=== PATIENT | female | born 1985 | race African-American/Black ===

== ENCOUNTER 2017-03-30 16:27 | Emergency (ER) | payer MEDICAID ==
[~2017-03-30] VITALS: Ht 165.1 cm; Wt 102.0 kg
[~2017-03-30 16:27] MED LIST: CORTISONE CREAM
[2017-03-30 16:34] VITALS: BP 140/82
[2017-03-30] MEDS ORDERED: ARIP15TA3 PO (16:39)
[2017-03-30] MEDS ORDERED: SERT25TA PO (16:39)
[2017-03-30] MEDS ORDERED: ALPR1TAB2 PO (16:39)
== END 2017-03-30 21:45 | disposition left against medical advice (07) ==
LOC: ER 16:28
DX: F41.0 Panic disorder [episodic paroxysmal anxiety] (principal); Z53.21 Procedure and treatment not carried out due to patient leaving prior to being seen by health care provider

== ENCOUNTER 2018-08-31 08:42 | Emergency (ER) | payer MEDICAID ==
[~2018-08-31] VITALS: Ht 165.1 cm; Wt 111.0 kg
[~2018-08-31 08:42] MED LIST changes: +ALPR1TAB2 PO; +ARIP15TA2 PO; +SERT25TA PO
[2018-08-31] MEDS ORDERED: ONDANSETRON HCL 4MG/2ML INJ IV STA (09:09)
[2018-08-31] MEDS ORDERED: KETOROLAC 30MG/ML VIAL IV STA (09:09)
[2018-08-31] MEDS ORDERED: SODIUM CHLORIDE 0.9% 1,000 ML IV ONE (09:09)
[2018-08-31] MEDS ORDERED: FAMOTIDINE 20MG/2ML VIAL IV STA (09:09)
[2018-08-31 09:36] LABS: BASOPHILS % 0.3 % (0.0-2.0); EOSINOPHILS % 4.5 % (0.0-5.0); HEMOGLOBIN. 11.8 g/dL (12.0-16.0); LYMPHOCYTES % 26.5 % (20.0-50.0); MEAN CORPUSCULAR HEMOGLOBIN 27.3 pg (28.0-32.0); MEAN CORPUSCULAR VOLUME 83.6 fL (81.0-99.0); MONOCYTES % 9.1 % (2.0-8.0); NEUTROPHILS % 59.6 % (40.0-76.0); PLATELET 293 x1000/uL (130-400); RED BLOOD CELL COUNT 4.31 mill/uL (4.2-5.4); RED CELL DISTRIBUTION WIDTH 14.1 % (11.6-14.6)
[2018-08-31 09:40] LABS: CLARITY URINE CLOUDY (CLEAR); COLOR URINE YELLOW (YELLOW); KETONES URINE NEGATIVE (NEGATIVE); LEUKOCYTE ESTERASE URINE 1+ (NEGATIVE); NITRITE URINE NEGATIVE (NEGATIVE); OCCULT BLOOD URINE NEGATIVE (NEGATIVE); PH URINE 6.5 (4.5-8.0); PROTEIN URINE NEGATIVE (NEGATIVE); SPECIFIC GRAVITY URINE 1.026 (1.005-1.030)
[2018-08-31 09:48] LABS: HCG SCREEN NEGATIVE
[2018-08-31 09:53] LABS: CHLORIDE 105 mEq/L (98-107)
[2018-08-31 10:53] LABS: *AMPHETAMINES SCREEN URINE NEGATIVE (NEGATIVE); *BARBITURATES SCREEN URINE NEGATIVE (NEGATIVE); *COCAINE SCREEN URINE NEGATIVE (NEGATIVE); CANNABINOID URINE SCREEN NEGATIVE (NEGATIVE); METHADONE URINE SCREEN NEGATIVE (NEGATIVE)
[2018-08-31 10:56] LABS: *BENZODIAZEPINES SCREEN URINE NEGATIVE (NEGATIVE); PHENCYCLIDINE URINE SCREEN NEGATIVE (NEGATIVE)
[2018-08-31 11:08] LABS: OPIATES URINE SCREEN NEGATIVE (NEGATIVE)
[2018-08-31 13:42] VITALS: BP 126/97
== END 2018-08-31 13:53 | disposition home or self-care (01) ==
LOC: ER 08:42
DX: J06.9 Acute upper respiratory infection, unspecified (principal); N39.0 Urinary tract infection, site not specified; R19.7 Diarrhea, unspecified; R11.10 Vomiting, unspecified; F41.9 Anxiety disorder, unspecified; F31.9 Bipolar disorder, unspecified; Z79.899 Other long term (current) drug therapy
CPT/HCPCS: 36415; 74022; 76705; 80053; 80305; 81003; 81025; 83690; 84703; 85025; 96361; 96374; 96375; 99285; J1885; J2405; J3490; J7030; Z7610

== ENCOUNTER 2019-08-27 12:52 | Emergency (ER) | payer MEDICAID ==
[~2019-08-27] VITALS: Ht 165.1 cm; Wt 115.0 kg
[2019-08-27] MEDS ORDERED: ERYTHROMYCIN BASE 0.5% OPHTH OINT 3.5GM BOTHEYE ONE (14:45)
[2019-08-27 15:24] VITALS: BP 122/84
== END 2019-08-27 15:26 | disposition home or self-care (01) ==
LOC: ER 13:08
DX: B99.8 Other infectious disease (principal); H10.89 Other conjunctivitis; F41.9 Anxiety disorder, unspecified; F32.9 Major depressive disorder, single episode, unspecified; L29.8 Other pruritus
CPT/HCPCS: 99283

== ENCOUNTER 2020-02-06 09:35 | Emergency (ER) | payer MEDICAID ==
[~2020-02-06] VITALS: Ht 165.1 cm; Wt 118.0 kg
[2020-02-06] MEDS ORDERED: GUAIFENESIN-DM 200MG-20MG/10ML UDC PO ONE (10:15)
[2020-02-06 12:10] VITALS: BP 138/91
== END 2020-02-06 12:16 | disposition home or self-care (01) ==
LOC: ER 09:35
DX: J20.9 Acute bronchitis, unspecified (principal); J06.9 Acute upper respiratory infection, unspecified; F41.9 Anxiety disorder, unspecified; F32.9 Major depressive disorder, single episode, unspecified; Z79.899 Other long term (current) drug therapy
CPT/HCPCS: 71045; 99283

== ENCOUNTER 2020-11-29 19:12 | Emergency (ER) | payer MEDICAID ==
[~2020-11-29] VITALS: Ht 165.1 cm; Wt 131.0 kg
[2020-11-30] MEDS ORDERED: IBUPROFEN 600MG TABLET PO ONE (00:15)
[2020-11-30 00:58] VITALS: BP 155/81
[2020-11-30 01:23] LABS: CLARITY URINE CLEAR (CLEAR); COLOR URINE YELLOW (YELLOW); KETONES URINE TRACE (NEGATIVE); LEUKOCYTE ESTERASE URINE NEGATIVE (NEGATIVE); NITRITE URINE NEGATIVE (NEGATIVE); OCCULT BLOOD URINE NEGATIVE (NEGATIVE); PH URINE 6.5 (4.5-8.0); PROTEIN URINE NEGATIVE (NEGATIVE)
[2020-11-30 01:49] LABS: BASOPHILS % 0.7 % (0.0-2.0); HEMATOCRIT. 36.9 % (36.0-48.0); HEMOGLOBIN. 12.2 g/dL (12.0-16.0); LYMPHOCYTES % 32.5 % (20.0-50.0); MEAN PLATELET VOLUME 8.3 fl (7.4-10.4); NEUTROPHILS % 55.8 % (40.0-76.0); PLATELET 250 x1000/uL (130-400); RED CELL DISTRIBUTION WIDTH 14.3 % (11.6-14.6)
[2020-11-30 01:54] LABS: CHLORIDE 105 mEq/L (98-107)
[2020-11-30 02:03] LABS: HCG SCREEN NEGATIVE
== END 2020-11-30 02:30 | disposition home or self-care (01) ==
LOC: ER 19:12
DX: R10.2 Pelvic and perineal pain (principal); F41.9 Anxiety disorder, unspecified; F32.9 Major depressive disorder, single episode, unspecified
CPT/HCPCS: 36415; 80053; 81003; 81025; 84703; 85025; 99283

== ENCOUNTER 2021-05-23 23:20 | Emergency (ER) | payer MEDICAID ==
[~2021-05-23] VITALS: Ht 165.1 cm; Wt 132.0 kg
[2021-05-24 01:11] LABS: BASOPHILS % 0.6 % (0.0-2.0); EOSINOPHILS % 2.6 % (0.0-5.0); HEMATOCRIT. 38.7 % (36.0-48.0); HEMOGLOBIN. 12.4 g/dL (12.0-16.0); LYMPHOCYTES % 33.2 % (20.0-50.0); MEAN CORPUSCULAR HEMOGLOBIN 26.4 pg (28.0-32.0); MEAN CORPUSCULAR VOLUME 82.4 fL (81.0-99.0); MONOCYTES % 7.9 % (2.0-8.0); NEUTROPHILS % 55.7 % (40.0-76.0); PLATELET 296 x1000/uL (130-400); RED BLOOD CELL COUNT 4.69 mill/uL (4.2-5.4); RED CELL DISTRIBUTION WIDTH 14.7 % (11.6-14.6)
[2021-05-24 01:16] LABS: CHLORIDE 107 mEq/L (98-107)
[2021-05-24 01:31] LABS: HCG SCREEN NEGATIVE
[2021-05-24] MEDS ORDERED: SODIUM CHLORIDE 0.9% 1,000 ML IV ONE ×2 (02:15)
[2021-05-24] MEDS ORDERED: CLOT15CR27 TP (05:50)
[2021-05-24] MEDS ORDERED: IOHEXOL-350 100 ML BOTTLE ONE (06:23)
[2021-05-24 06:28] VITALS: BP 145/98
== END 2021-05-24 06:31 | disposition home or self-care (01) ==
LOC: ER 23:20
DX: R07.89 Other chest pain (principal); E11.9 Type 2 diabetes mellitus without complications
CPT/HCPCS: 36415; 71045; 71275; 80053; 83880; 84484; 84703; 85025; 85379; 93005; 96360; 99285; J7030; Q9967

== ENCOUNTER 2022-05-11 23:47 | Emergency (ER) | payer MEDICAID ==
[~2022-05-11] VITALS: Ht 165.1 cm; Wt 125.0 kg
[~2022-05-11 23:47] MED LIST changes: +CLOT15CR27 TP
[2022-05-12 00:03] VITALS: BP 139/88
== END 2022-05-12 01:06 | disposition left against medical advice (07) ==
LOC: ER 23:47
DX: Z53.21 Procedure and treatment not carried out due to patient leaving prior to being seen by health care provider (principal)
CPT/HCPCS: 93005

== ENCOUNTER 2022-06-14 10:59 | Emergency (ER) | payer MEDICAID ==
[~2022-06-14] VITALS: Ht 165.1 cm; Wt 124.0 kg
[2022-06-14 11:27] VITALS: BP 140/93
[2022-06-14 15:28] LABS: *AMPHETAMINES SCREEN URINE NEGATIVE (NEGATIVE); *BARBITURATES SCREEN URINE NEGATIVE (NEGATIVE); *BENZODIAZEPINES SCREEN URINE NEGATIVE (NEGATIVE); *COCAINE SCREEN URINE NEGATIVE (NEGATIVE); CANNABINOID URINE SCREEN NEGATIVE (NEGATIVE); METHADONE URINE SCREEN NEGATIVE (NEGATIVE); OPIATES URINE SCREEN NEGATIVE (NEGATIVE); PHENCYCLIDINE URINE SCREEN NEGATIVE (NEGATIVE)
== END 2022-06-14 18:35 | disposition home or self-care (01) ==
LOC: ER 11:24
DX: R68.89 Other general symptoms and signs (principal); E11.9 Type 2 diabetes mellitus without complications; Z79.899 Other long term (current) drug therapy
CPT/HCPCS: 80305; 81025; 99283

== ENCOUNTER 2022-06-14 19:13 | Emergency (ER) | payer MEDICAID ==
[~2022-06-14] VITALS: Ht 167.6 cm; Wt 133.0 kg
[2022-06-14 19:26] VITALS: BP 148/82
== END 2022-06-14 20:32 | disposition left against medical advice (07) ==
LOC: ER 19:13
DX: T76.21XA Adult sexual abuse, suspected, initial encounter (principal); X58.XXXA Exposure to other specified factors, initial encounter; Z79.899 Other long term (current) drug therapy
CPT/HCPCS: 99281

== ENCOUNTER 2023-01-21 02:46 | Emergency (ER) | payer MEDICAID | END 2023-01-21 03:26 | disposition left against medical advice (07) | LOC: ER 02:46 | DX: Z53.21 Procedure and treatment not carried out due to patient leaving prior to being seen by health care provider (principal) ==

== ENCOUNTER 2023-01-21 07:42 | Emergency (ER) | payer MEDICAID ==
[~2023-01-21] VITALS: Ht 167.6 cm; Wt 99.8 kg
[2023-01-21 07:50] VITALS: BP 146/80
[2023-01-21] MEDS ORDERED: MIDAZOLAM HCL 2 MG/2 ML VIAL IV ONE (09:00)
[2023-01-21 09:10] LABS: BASOPHILS % 0.3 % (0.0-2.0); EOSINOPHILS % 2.2 % (0.0-5.0); HEMATOCRIT. 38.8 % (36.0-48.0); HEMOGLOBIN. 12.7 g/dL (12.0-16.0); MEAN CORPUSCULAR HEMOGLOBIN 27.2 pg (28.0-32.0); MEAN CORPUSCULAR VOLUME 83.3 fL (81.0-99.0); MEAN PLATELET VOLUME 7.8 fl (7.4-10.4); NEUTROPHILS % 71.5 % (40.0-76.0); PLATELET 287 x1000/uL (130-400); RED BLOOD CELL COUNT 4.66 mill/uL (4.2-5.4); RED CELL DISTRIBUTION WIDTH 15.6 % (11.6-14.6)
[2023-01-21 09:18] LABS: CHLORIDE 107 mEq/L (98-107)
[2023-01-21 09:25] LABS: ETHANOL BLOOD < 10 mg/dL
[2023-01-21 09:33] LABS: HCG SCREEN NEGATIVE
[2023-01-21 13:46] LABS: CLARITY URINE CLEAR (CLEAR); COLOR URINE YELLOW (YELLOW); KETONES URINE NEGATIVE (NEGATIVE); LEUKOCYTE ESTERASE URINE 3+ (NEGATIVE); NITRITE URINE NEGATIVE (NEGATIVE); OCCULT BLOOD URINE TRACE (NEGATIVE); PH URINE 5.5 (4.5-8.0); PROTEIN URINE NEGATIVE (NEGATIVE); SPECIFIC GRAVITY URINE 1.016 (1.005-1.030)
[2023-01-21 14:43] LABS: *AMPHETAMINES SCREEN URINE NEGATIVE (NEGATIVE); *BARBITURATES SCREEN URINE NEGATIVE (NEGATIVE); *BENZODIAZEPINES SCREEN URINE NEGATIVE (NEGATIVE); *COCAINE SCREEN URINE NEGATIVE (NEGATIVE); CANNABINOID URINE SCREEN NEGATIVE (NEGATIVE); METHADONE URINE SCREEN NEGATIVE (NEGATIVE); OPIATES URINE SCREEN NEGATIVE (NEGATIVE); PHENCYCLIDINE URINE SCREEN NEGATIVE (NEGATIVE)
== END 2023-01-21 14:10 | disposition home or self-care (01) ==
LOC: ER 07:42
DX: F41.9 Anxiety disorder, unspecified (principal); E11.9 Type 2 diabetes mellitus without complications; Z59.02 Unsheltered homelessness
CPT/HCPCS: 36415; 71045; 80053; 80305; 80320; 81003; 83880; 84703; 85025; 93005; 99285; G0480

== ENCOUNTER 2025-09-08 09:38 | Emergency (ER) | payer OTHER, MEDICAID ==
[~2025-09-08] VITALS: Ht 165.1 cm; Wt 136.0 kg
[2025-09-08 09:42] VITALS: O2SAT 97
[2025-09-08 10:18] VITALS: BP 128/92; PULSE 99; RESP 16; TEMP 36.8; O2SAT 98
[2025-09-08 11:40] LABS: INFLUENZA TYPE A Presumptive Negative (Pres. Neg.)
[2025-09-08 11:41] LABS: INFLUENZA TYPE B Presumptive Negative (Pres. Neg.); RESPIRATORY SYNCYTIAL VIRUS Not Detected (Not Detectd)
== END 2025-09-08 10:19 | disposition home or self-care (01) ==
LOC: ER 09:50
DX: J98.8 Other specified respiratory disorders (principal); B97.89 Other viral agents as the cause of diseases classified elsewhere; F31.9 Bipolar disorder, unspecified; E11.9 Type 2 diabetes mellitus without complications; F41.9 Anxiety disorder, unspecified; Z20.822 Contact with and (suspected) exposure to COVID-19
CPT/HCPCS: 87420; 87426; 87804; 99283